=== PATIENT | male | born 1980 | race African-American/Black ===

== ENCOUNTER 2020-11-27 08:17 | Observation (INO) ==
[2020-11-27] MEDS ORDERED: BISACODYL 5 MG TABLET PO PRN (11:25)
[2020-11-27] MEDS ORDERED: ONDANSETRON 4 MG/2 ML VIAL IV PRN (11:25)
[2020-11-27] MEDS ORDERED: HYDROmorphone 2 MG/1 ML VIAL IV PRN (11:25)
[2020-11-27 11:29] LABS: Albumin 3.6 G/DL (3.4-5.0); Bilirubin,Total 0.7 MG/DL (0.20-1.00); Calcium 9.3 MG/DL (8.5-10.1); Potassium 3.7 MMOL/L (3.5-5.1); Total Protein 7.7 G/DL (6.4-8.2)
[2020-11-27] MEDS ORDERED: KETOROLAC 30 MG/1 ML VIAL IV PRN (11:39)
[2020-11-27 11:40] LABS: Basophils % 0.1 % (0.0-0.8); Eosinophils % 0.4 % (0.00-10.9); Hemoglobin 16.3 GM/DL (14.0-18.0); Immature Granulocytes % 0.5 %; Immature Granulocytes Absolute 0.04 #; Lymphocytes # 1.3 10*3/uL (1.4-4.0); Lymphocytes % 16.2 % (21.2-54.2); Mean Corpuscular HGB Conc 36.2 GM/DL (32-36); Mean Corpuscular Volume 81.2 FL (87-102); Mean Platelet Volume 10.9 FL (9.6-12.0); Monocytes % 4.9 % (1.7-12.7); Neutrophils % 77.9 % (38.7-73.9); Platelet Count 255 T/CUMM (130-400); Red Blood Count 5.54 MC/CUMM (3.8-5.5); Red Cell Distribution Width 13.4 % (9.3-17.3); White Blood Count 8.2 T/CUMM (4-12)
[2020-11-27] MEDS: VANCOMYCIN INJ 1,250 MG in SODIUM CHLORIDE 0.9% 500 ML IV SCH (14:38)
[2020-11-27] MEDS ORDERED: hydrALAZINE 20 MG/1 ML VIAL IV PRN (14:59)
[2020-11-27] MEDS: ACETAMINOPHEN 325 MG TABLET PO PRN (18:04)
[2020-11-28] MEDS: VANCOMYCIN INJ 1,250 MG in SODIUM CHLORIDE 0.9% 500 ML IV SCH ×2 (02:07→13:34)
[2020-11-28] MEDS ORDERED: BUPIVACAINE MPF 0.25% 30 ML VIAL ONE (06:32)
[2020-11-28] MEDS ORDERED: fentaNYL 100 MCG/2 ML VIAL ONE (06:49)
[2020-11-28] MEDS ORDERED: MIDAZOLAM 2 MG/2 ML VIAL ONE (06:49)
[2020-11-28] MEDS ORDERED: LACTATED RINGERS 1,000 ML IV SCH (07:00)
[2020-11-28] MEDS ORDERED: PHENYLEPHRINE 1 MG/10 ML SYRINGE IV ONE (07:17)
[2020-11-28] MEDS ORDERED: HYDROmorphone 2 MG/1 ML VIAL ONE (07:28)
[2020-11-28] MEDS ORDERED: propofoL 200 MG/20 ML VIAL IV ONE (07:32)
[2020-11-28] MEDS ORDERED: SUCCINYLCHOLINE 200 MG/10 ML VIAL ONE (07:32)
[2020-11-28] MEDS ORDERED: SEVOFLURANE 1 UNIT/15 MINUTE INH ONE (07:32)
[2020-11-28] MEDS ORDERED: LIDOCAINE 2% 5 ML VIAL ONE (07:32)
[2020-11-28] MEDS ORDERED: ONDANSETRON 4 MG/2 ML VIAL ONE (07:32)
[2020-11-28] MEDS: PANTOPRAZOLE 40 MG TABLET PO SCH (09:44)
[2020-11-28] MEDS ORDERED: amLODIPine 10 MG TABLET PO ONE (11:05)
[2020-11-28] MEDS: diphenhydrAMINE CAP 25 MG CAPSULE PO PRN ×2 (15:46→21:20)
[2020-11-28] MEDS: ACETAMINOPHEN 325 MG TABLET PO PRN (21:20)
[2020-11-29] MEDS: VANCOMYCIN INJ 1,250 MG in SODIUM CHLORIDE 0.9% 500 ML IV SCH ×2 (02:27→14:46)
[2020-11-29] MEDS: diphenhydrAMINE CAP 25 MG CAPSULE PO PRN (05:33)
[2020-11-29] MEDS: PANTOPRAZOLE 40 MG TABLET PO SCH (08:55)
[2020-11-29] MEDS ORDERED: amLODIPine 10 MG TABLET PO SCH (09:00)
[2020-11-29 11:30] VITALS: BP 124/63
[2020-11-29] MEDS ORDERED: SODIUM HYPOCHLORITE 0.25% IRRIG 473 ML BOTTLE TOP SCH (13:00)
== END 2020-11-29 15:50 | disposition home or self-care (01) ==
LOC: N.ED 08:17 → N.EDINP 11:25 → INTOOBSV 11:25 → N.3E 14:00
PROVIDERS: ADMIT Surgery; ATTEND Surgery